=== PATIENT | female | born 1990 | race Two or more races ===

== ENCOUNTER 2017-02-09 20:20 | Outpatient (CLI) | payer MEDICAID, OTHER ==
[2017-02-09 20:45] VITALS: BMI 24.1
== END 2017-02-09 21:12 | disposition home or self-care (01) ==
LOC: FBCOUT 20:20 → FBC 20:20 → FBCOUT 21:12
PROVIDERS: ATTEND Family Medicine
DX: O47.1 False labor at or after 37 completed weeks of gestation (principal); Z3A.39 39 weeks gestation of pregnancy
CPT/HCPCS: 59025; G0463